=== PATIENT | female | born 1940 | race Caucasian/White ===

== ENCOUNTER 2017-03-20 12:59 | Inpatient (IN) | payer OTHER ==
[~2017-03-20] VITALS: Ht 147.3 cm; Wt 72.4 kg
[~2017-03-20 12:59] MED LIST: ZOCOR5 MG PO; ZOLOFT25 MG PO
[2017-03-20 13:31] LABS: HEMATOCRIT 42.3 % (36.0-46.0); MCH 30.1 PG (29.0-34.0); MCHC 34.3 G/DL (30.0-36.0); MCV 87.8 FL (83-99); MEAN PLAT.VOLUME 10.9 uM^3 (9.5-12.4); PLATELET COUNT 178 K/uL (156-360); RED BLOOD COUNT 4.82 M/uL (3.80-5.20); WHITE BLOOD COUNT 12.4 K/uL (4.1-10.2)
[2017-03-20 13:47] LABS: CHLORIDE 102 mEq/L (99-109); POTASSIUM 4.4 mEq/L (3.7-5.4); SODIUM 143 mEq/L (136-147)
[2017-03-20 13:49] LABS: GLUCOSE 115 mg/dL (70-99)
[2017-03-20 13:50] LABS: ANION GAP 14 MEQ/L (2-14)
[2017-03-20 13:51] LABS: TOTAL BILIRUBIN 0.4 mg/dL (0.0-1.0)
[2017-03-20 13:52] LABS: ALKALINE PHOSPHATASE 71 IU/L (3-129)
[2017-03-20 13:53] LABS: GFR ESTIMATE (CALCULATED) 52 mL/min/
[2017-03-20 13:54] LABS: UREA NITROGEN (BUN) 22 mg/dL (9-23)
[2017-03-20 13:56] LABS: LIPASE 62 U/L (1.0-51.0)
[2017-03-20 14:10] LABS: ADD MIUA? YES; BILIRUBIN NEGATIVE; BLOOD NEGATIVE; COLOR YELLOW ((YELLOW)); GLUCOSE (STRIP) NEGATIVE; KETONES NEGATIVE; LEUKOCYTES TRACE; NITRITE NEGATIVE; PROTEIN (STRIP) >=500; SPECIFIC GRAVITY 1.015 (1.000-1.030); UROBILINOGEN 0.2 MG/DL (0.2-1.0)
[2017-03-20 14:15] LABS: BACTERIA RARE /HPF; EPITHELIAL CELLS RARE /HPF; HYALINE CASTS 0-5 /LPF; MUCUS TRACE /LPF; RED BLOOD CELLS 0-5 /HPF (0-5); UCUL ADDED? NO; UNCLASSIFIED CASTS 0-5 /LPF; WHITE BLOOD CELLS 0-5 /HPF (0-5)
[2017-03-20] MEDS ORDERED: ZOCOR40 MG PO (17:54)
[2017-03-20] MEDS ORDERED: ZOLOFT50 MG PO (17:55)
[2017-03-20 22:19] VITALS: BP 130/63
[2017-03-21] VITALS (7 sets, daily range): BP systolic 120–155; BP diastolic 56–80
[2017-03-21 07:48] LABS: HEMATOCRIT 35.6 % (36.0-46.0); MCH 30.3 PG (29.0-34.0); MCHC 33.7 G/DL (30.0-36.0); MCV 89.9 FL (83-99); MEAN PLAT.VOLUME 11.2 uM^3 (9.5-12.4); PLATELET COUNT 145 K/uL (156-360); RBC DIS.WIDTH-CV 13.3 % (11.8-14.6); RBC DIS.WIDTH-SD 43.8 % (39-53); RED BLOOD COUNT 3.96 M/uL (3.80-5.20); WHITE BLOOD COUNT 14.3 K/uL (4.1-10.2)
[2017-03-21 08:26] LABS: ANION GAP 9 MEQ/L (2-14); CHLORIDE 105 MEQ/L (99-109); GFR ESTIMATE (CALCULATED) 52 mL/min/; GLUCOSE 160 mg/dL (70-99); POTASSIUM 4.1 MEQ/L (3.7-5.4); SAMPLE HEMOLYSIS CHECK 0; SAMPLE ICTERIC CHECK 0; SAMPLE LIPEMIA CHECK 0; SODIUM 139 MEQ/L (136-147); UREA NITROGEN (BUN) 21 mg/dL (9-23)
[2017-03-21 20:47] LABS: EOSINOPHIL (%) 0.3 % (0-5); HEMATOCRIT 36.5 % (36.0-46.0); IMMATURE GRANULOCYTE (%) 0.3 % (0.0-0.7); INSTRUMENT ABS NEUTROPHIL CT 10.2 K/uL; MCH 30.6 PG (29.0-34.0); MCV 90.1 FL (83-99); MEAN PLAT.VOLUME 11.5 uM^3 (9.5-12.4); MONOCYTE (%) 4.6 % (3-12); MONOCYTE COUNT 0.6 K/uL (0-0.8); NEUTROPHIL (%) 85.8 % (45-76); NEUTROPHIL COUNT 10.2 K/uL (1.8-6.4); PLATELET COUNT 149 K/uL (156-360); RBC DIS.WIDTH-CV 13.8 % (11.8-14.6); RBC DIS.WIDTH-SD 45.8 % (39-53); RED BLOOD COUNT 4.05 M/uL (3.80-5.20); WHITE BLOOD COUNT 11.8 K/uL (4.1-10.2)
[2017-03-21 20:57] LABS: ANION GAP 8 MEQ/L (2-14); CHLORIDE 105 MEQ/L (99-109); SAMPLE HEMOLYSIS CHECK 0; SAMPLE ICTERIC CHECK 0; SAMPLE LIPEMIA CHECK 0; SODIUM 137 MEQ/L (136-147); TOTAL BILIRUBIN 0.6 MG/DL (0.0-1.0)
[2017-03-21 21:02] LABS: ALKALINE PHOSPHATASE 50 IU/L (3-129); GFR ESTIMATE (CALCULATED) 58 mL/min/; GLUCOSE 126 mg/dL (70-99); UREA NITROGEN (BUN) 22 mg/dL (9-23)
[2017-03-21 21:05] LABS: D-DIMER ELISA > 4.00 mg/L FEU (< 0.57)
[2017-03-21 21:07] LABS: TROP-I INTERPRETATION POSITIVE; TROPONIN-I 0.63 ng/mL (0.0-0.30)
[2017-03-22 01:44] VITALS: BP 136/65
[2017-03-22 02:00] LABS: CARBOXY HGB 2.5 % (0-5); METHEMOGLOBIN 1.8 % (0-1.5); PCO2 42 mm Hg (35-45); PO2 58 mm Hg (80-100)
[2017-03-22 02:01] LABS: COMMENTS - BLOOD GASES C+A+; DEVICE HFNC; O2 FLOW 10 L/MIN; SITE RR
[2017-03-22 02:43] LABS: TROP-I INTERPRETATION INDETERMINATE; TROPONIN-I 0.54 ng/mL (0.0-0.30)
[2017-03-22 04:19] VITALS: BP 152/67
[2017-03-22 08:00] VITALS: BP 171/74
[2017-03-22 09:12] LABS: TROP-I INTERPRETATION INDETERMINATE; TROPONIN-I 0.42 ng/mL (0.0-0.30)
[2017-03-22 12:00] VITALS: BP 157/78
[2017-03-22 16:05] VITALS: BP 178/74
[2017-03-22 19:46] VITALS: BP 121/58
[2017-03-23 01:05] VITALS: BP 170/72
[2017-03-23 03:47] VITALS: BP 142/70
[2017-03-23 08:00] VITALS: BP 169/71
[2017-03-23 12:00] VITALS: BP 161/79
[2017-03-23 17:11] VITALS: BP 131/83
[2017-03-23 22:20] VITALS: BP 145/72
[2017-03-24] VITALS (7 sets, daily range): BP systolic 133–186; BP diastolic 60–104
[2017-03-24 13:14] LABS: HEMATOCRIT 35.3 % (36.0-46.0); MCHC 32.3 G/DL (30.0-36.0); MCV 92.9 FL (83-99); PLATELET COUNT 144 K/uL (156-360); RBC DIS.WIDTH-CV 13.2 % (11.8-14.6); WHITE BLOOD COUNT 9.4 K/uL (4.1-10.2)
[2017-03-24 13:43] LABS: ANION GAP 7 MEQ/L (2-14); CHLORIDE 105 MEQ/L (99-109); GFR ESTIMATE (CALCULATED) > 59 mL/min/; GLUCOSE 120 mg/dL (70-99); POTASSIUM 4.4 MEQ/L (3.7-5.4); SAMPLE HEMOLYSIS CHECK 0; SAMPLE ICTERIC CHECK 0; SAMPLE LIPEMIA CHECK 0; SODIUM 139 MEQ/L (136-147); UREA NITROGEN (BUN) 17 mg/dL (9-23)
[2017-03-25 04:14] VITALS: BP 145/67
[2017-03-25 08:40] VITALS: BP 200/87
[2017-03-25 08:48] LABS: EOSINOPHIL (%) 0.8 % (0-5); EOSINOPHIL COUNT 0.1 K/uL (0-0.3); HEMATOCRIT 34.1 % (36.0-46.0); IMMATURE GRANULOCYTE (%) 0.5 % (0.0-0.7); INSTRUMENT ABS NEUTROPHIL CT 6.6 K/uL; LYMPHOCYTE COUNT 0.5 K/uL (1.0-2.8); MCH 30.4 PG (29.0-34.0); MCHC 33.7 G/DL (30.0-36.0); MCV 90.2 FL (83-99); MEAN PLAT.VOLUME 11.2 uM^3 (9.5-12.4); MONOCYTE (%) 6.2 % (3-12); MONOCYTE COUNT 0.5 K/uL (0-0.8); NEUTROPHIL (%) 85.4 % (45-76); NEUTROPHIL COUNT 6.6 K/uL (1.8-6.4); PLATELET COUNT 150 K/uL (156-360); RBC DIS.WIDTH-SD 42.6 % (39-53); RED BLOOD COUNT 3.78 M/uL (3.80-5.20); WHITE BLOOD COUNT 7.7 K/uL (4.1-10.2)
[2017-03-25 09:18] LABS: ANION GAP 10 MEQ/L (2-14); CHLORIDE 103 MEQ/L (99-109); GFR ESTIMATE (CALCULATED) 58 mL/min/; GLUCOSE 123 mg/dL (70-99); POTASSIUM 4.1 MEQ/L (3.7-5.4); SAMPLE HEMOLYSIS CHECK 0; SAMPLE ICTERIC CHECK 0; SAMPLE LIPEMIA CHECK 0; SODIUM 139 MEQ/L (136-147); UREA NITROGEN (BUN) 21 mg/dL (9-23)
[2017-03-25 10:26] VITALS: BP 166/72
[2017-03-25 12:22] VITALS: BP 164/72
[2017-03-25 19:43] VITALS: BP 148/72
[2017-03-25 23:50] VITALS: BP 152/72
[2017-03-26 03:59] VITALS: BP 165/86
[2017-03-26 06:49] LABS: ANION GAP 11 MEQ/L (2-14); CHLORIDE 102 MEQ/L (99-109); GFR ESTIMATE (CALCULATED) > 59 mL/min/; GLUCOSE 111 mg/dL (70-99); POTASSIUM 3.8 MEQ/L (3.7-5.4); SAMPLE HEMOLYSIS CHECK 0; SAMPLE ICTERIC CHECK 0; SAMPLE LIPEMIA CHECK 0; SODIUM 137 MEQ/L (136-147); UREA NITROGEN (BUN) 18 mg/dL (9-23)
[2017-03-26 07:24] LABS: EOSINOPHIL (%) 0.5 % (0-5); EOSINOPHIL COUNT 0.1 K/uL (0-0.3); IMMATURE GRANULOCYTE (%) 0.6 % (0.0-0.7); IMMATURE GRANULOCYTE COUNT 0.1 K/uL; INSTRUMENT ABS NEUTROPHIL CT 9.5 K/uL; LYMPHOCYTE COUNT 0.8 K/uL (1.0-2.8); MCH 30.3 PG (29.0-34.0); MCHC 34.3 G/DL (30.0-36.0); MCV 88.4 FL (83-99); MEAN PLAT.VOLUME 11.8 uM^3 (9.5-12.4); MONOCYTE (%) 6.6 % (3-12); MONOCYTE COUNT 0.8 K/uL (0-0.8); NEUTROPHIL (%) 84.5 % (45-76); NEUTROPHIL COUNT 9.5 K/uL (1.8-6.4); RBC DIS.WIDTH-SD 42.2 % (39-53); RED BLOOD COUNT 3.96 M/uL (3.80-5.20)
[2017-03-26 07:37] LABS: PLATELET COUNT 208 K/uL (156-360); WHITE BLOOD COUNT 11.3 K/uL (4.1-10.2)
[2017-03-26 09:30] VITALS: BP 156/70
[2017-03-26 12:34] VITALS: BP 147/63
[2017-03-26] MEDS ORDERED: LOPRESSOR25 MG PO (12:53)
[2017-03-26] MEDS ORDERED: ASPIR-LOW81 MG PO (12:53)
[2017-03-26] MEDS ORDERED: SENNA PLUS TAB1 EACH PO (12:53)
[2017-03-26] MEDS ORDERED: LOSARTAN POTAS100 MG PO (12:53)
[2017-03-26] MEDS ORDERED: CORDARONE200 MG PO (12:53)
[2017-03-26] MEDS ORDERED: XARELTO20 MG PO ×2 (12:53→13:29)
[2017-03-26] MEDS ORDERED: NORCO 5/3251 TABLET PO (13:01)
[2017-03-26] MEDS ORDERED: TYLENOL EXTRA500 MG PO (13:01)
== END 2017-03-26 17:27 | disposition home health service (06) | DRG 329 ==
LOC: EME 12:59 → SDC 18:05 → EME 18:05 → 2EASTP 19:19 → 2SOUTH 19:19 → 2EASTP 21:39 → 4EAST 03-21 20:56
PROVIDERS: Internal Medicine; Physician Assistant; Student in an Organized Health Care Education/Training Program; Surgery
PROC: 3E1M38Z Irrigation of Peritoneal Cavity using Irrigating Substance, Percutaneous Approach (ICD-10-PCS; principal; 2017-03-20)
PROC: [UNRECOGNIZED PROCEDURE] (2017-03-20)
DX: T18.3XXA Foreign body in small intestine, initial encounter (principal); K56.69 Other intestinal obstruction; X58.XXXA Exposure to other specified factors, initial encounter; E11.9 Type 2 diabetes mellitus without complications; E66.9 Obesity, unspecified; Z68.33 Body mass index [BMI] 33.0-33.9, adult; E78.5 Hyperlipidemia, unspecified; F33.9 Major depressive disorder, recurrent, unspecified; M19.90 Unspecified osteoarthritis, unspecified site; I21.4 Non-ST elevation (NSTEMI) myocardial infarction; I27.2 Other secondary pulmonary hypertension; I08.3 Combined rheumatic disorders of mitral, aortic and tricuspid valves; J90 Pleural effusion, not elsewhere classified; J98.11 Atelectasis; I97.89 Other postprocedural complications and disorders of the circulatory system, not elsewhere classified; I48.0 Paroxysmal atrial fibrillation; Y83.8 Other surgical procedures as the cause of abnormal reaction of the patient, or of later complication, without mention of misadventure at the time of the procedure; E86.0 Dehydration; R01.1 Cardiac murmur, unspecified; I44.4 Left anterior fascicular block; R09.02 Hypoxemia; G47.33 Obstructive sleep apnea (adult) (pediatric); K59.8 Other specified functional intestinal disorders; I25.10 Atherosclerotic heart disease of native coronary artery without angina pectoris; F41.9 Anxiety disorder, unspecified
CPT/HCPCS: 36600; 71010; 71020; 71275; 74177; 80048; 80053; 81003; 82803; 83690; 84439; 84443; 84484; 85025; 85027; 85379; 92526 GN; 92610 GN; 93005; 93306; 94799; 99281; 99285; J0131; J0330; J0360; J1100; J1170; J1650; J1885; J2405; J2710; J3010; J7030; J7040; J7050

== ENCOUNTER 2017-04-03 09:12 | Day surgery (SDC) | payer OTHER ==
[~2017-04-03] VITALS: Ht 147.3 cm; Wt 64.0 kg
[~2017-04-03 09:12] MED LIST changes: +ASPIR-LOW81 MG PO; +CORDARONE200 MG PO; +LOPRESSOR25 MG PO; +LOSARTAN POTAS100 MG PO; +NORCO 5/3251 TABLET PO; +SENNA PLUS TAB1 EACH PO; +TYLENOL EXTRA500 MG PO; +XARELTO20 MG PO; +ZOCOR40 MG PO; +ZOLOFT50 MG PO
[2017-04-03 10:24] LABS: POINT-OF-CARE METER ID UU13113696
[2017-04-03 17:30] VITALS: BP 131/80
[2017-04-03 19:20] VITALS: BP 145/67
[2017-04-03 23:10] VITALS: BP 174/77
[2017-04-04 03:05] VITALS: BP 196/78
[2017-04-04 06:55] VITALS: BP 149/70
[2017-04-04 08:05] LABS: BASOPHIL COUNT 0.1 K/uL (0-0.1); EOSINOPHIL COUNT 0.2 K/uL (0-0.3); HEMATOCRIT 31.4 % (36.0-46.0); IMMATURE GRANULOCYTE (%) 0.3 % (0.0-0.7); INSTRUMENT ABS NEUTROPHIL CT 6.2 K/uL; LYMPHOCYTE COUNT 0.6 K/uL (1.0-2.8); MCH 30.5 PG (29.0-34.0); MCHC 34.4 G/DL (30.0-36.0); MCV 88.7 FL (83-99); MEAN PLAT.VOLUME 10.9 uM^3 (9.5-12.4); MONOCYTE (%) 6.1 % (3-12); MONOCYTE COUNT 0.5 K/uL (0-0.8); NEUTROPHIL (%) 82.5 % (45-76); NEUTROPHIL COUNT 6.2 K/uL (1.8-6.4); PLATELET COUNT 268 K/uL (156-360); RBC DIS.WIDTH-CV 13.8 % (11.8-14.6); RBC DIS.WIDTH-SD 44.5 % (39-53); RED BLOOD COUNT 3.54 M/uL (3.80-5.20)
[2017-04-04 08:21] LABS: WHITE BLOOD COUNT 7.6 K/uL (4.1-10.2)
[2017-04-04 08:36] LABS: TROP-I INTERPRETATION NEGATIVE; TROPONIN-I 0.21 ng/mL (0.0-0.30)
[2017-04-04 09:33] LABS: ANION GAP 10 MEQ/L (2-14); CHLORIDE 107 MEQ/L (99-109); GFR ESTIMATE (CALCULATED) 58 mL/min/; GLUCOSE 119 mg/dL (70-99); POTASSIUM 3.7 MEQ/L (3.7-5.4); SAMPLE HEMOLYSIS CHECK 0; SAMPLE ICTERIC CHECK 0; SAMPLE LIPEMIA CHECK 0; SODIUM 139 MEQ/L (136-147); UREA NITROGEN (BUN) 9 mg/dL (9-23)
[2017-04-04 11:33] VITALS: BP 159/71
[2017-04-04] MEDS ORDERED: PLAVIX75 MG PO (13:04)
[2017-04-04] MEDS ORDERED: LOPRESSOR25 MG PO (13:04)
== END 2017-04-04 15:02 | disposition home or self-care (01) ==
LOC: CATH 09:12 → 2SOUTH 13:41 → 4EAST 13:41 → 2SOUTH 13:41 → 4EAST 17:00
PROVIDERS: Internal Medicine Interventional Cardiology
DX: I25.10 Atherosclerotic heart disease of native coronary artery without angina pectoris (principal); I21.3 ST elevation (STEMI) myocardial infarction of unspecified site; I35.0 Nonrheumatic aortic (valve) stenosis; I27.2 Other secondary pulmonary hypertension; Z79.82 Long term (current) use of aspirin; Z79.01 Long term (current) use of anticoagulants; R00.1 Bradycardia, unspecified
CPT/HCPCS: 80048; 82948; 84484; 85025; 85347; C1725; C1769; C1876; C1887; G0378; J1644; J2250; J3010